=== PATIENT | male | born 1970 | race African-American/Black ===

== ENCOUNTER 2016-09-06 01:38 | Emergency (ER) | payer SELFPAY ==
[~2016-09-06] VITALS: Ht 190.5 cm; Wt 109.1 kg
[2016-09-06 05:34] VITALS: BP 0/0
[2016-09-06] MEDS ORDERED: SODIUM BICARBONATE [ADULT] 8.4% 50 MEQ/50 ML SYRINGE IVP ONE (16:25)
[2016-09-06] MEDS ORDERED: AMIODARONE HCL 50 MG/ML 3 ML VIAL IV ONE (16:25)
[2016-09-06] MEDS ORDERED: EPINEPHrine 1:10,000 [1 MG/10 ML] SYRINGE IVP ONE (16:25)
[2016-09-06] MEDS ORDERED: ATROPINE SULFATE 0.1 MG/ML 10 ML SYRINGE IVP ONE (16:25)
== END 2016-09-06 06:55 | disposition expired ==
LOC: EMS 01:43 → EDBD 01:43 → EMS 06:55
DX: I46.9 Cardiac arrest, cause unspecified (principal); I10 Essential (primary) hypertension
CPT/HCPCS: 82962; 92950; 99285; J0171; J0282; J0461; J3490